=== PATIENT | female | born 1990 | race Two or more races ===

== ENCOUNTER → 2017-04-10 | Outpatient (CLI) | payer MEDICAID | LOC: FIMAGING 07:55 | PROVIDERS: ATTEND Obstetrics & Gynecology | DX: O44.02 Complete placenta previa NOS or without hemorrhage, second trimester (principal); Z3A.20 20 weeks gestation of pregnancy ==

== ENCOUNTER → 2017-05-30 | Outpatient (CLI) | payer MEDICAID | LOC: FIMAGING 10:27 | PROVIDERS: ATTEND Obstetrics & Gynecology | DX: O28.9 Unspecified abnormal findings on antenatal screening of mother (principal); Z3A.30 30 weeks gestation of pregnancy ==

== ENCOUNTER 2017-07-30 15:07 | Inpatient (IN) | payer MEDICAID ==
[2017-07-30] MEDS ORDERED: IBUPROFEN 600 MG TAB PO PRN (17:48)
[2017-07-30] MEDS ORDERED: OXYTOCIN 20 UNIT in LR 1,000 ML IV PRN (17:48)
[2017-07-30] MEDS ORDERED: MISOPROSTOL 200 MCG TAB PR PRN (17:48)
[2017-07-30] MEDS ORDERED: EPSOM SALT 454 GM TP PRN (17:48)
[2017-07-30] MEDS ORDERED: OLIVE OIL 118 ML BTL MISC PRN (17:48)
[2017-07-30] MEDS ORDERED: TERBUTALINE SULFATE 1 MG/ML VIAL IV PRN (17:48)
[2017-07-30] MEDS ORDERED: LR 1,000 ML IV PRN (17:48)
[2017-07-30 17:53] LABS: PLATELET COUNT 253 10^3/uL (150-400)
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
--- NOTE | 2017-07-31 07:11 | OBPROG ---
Labor Progress Note Assessment/Plan: Assessment:cat 1 exam 2-3/75/-1 cephalic amnisure and rom verified again consult with dr. sarahi messer place IUPC and pitocin ok for plan of care noted clear fluid leaking vaginally contractions q 3-5 minutes apart patient and family ok with POC Plan:pitocin per protocol , iupc placed 07/31/17 07:09 Subjective/Intrapartum Course: 07/31/17 07:09 Doing well . [place] contractions through the night. Noted contractions on monitor 3-5 minutes apart Objective: 07/30/17 17:20 Patient ABO/Rh A POSITIVE 07/30/17 17:20 - SVE Dilation (cm): 2, 3 Effacement (%): 80 Station: -1 Membranes: SROM Amniotic Fluid Color: Clear - Contraction Pattern Assessment Current Contraction Pattern: Regular - FHR Assessment Delgadillo FHR (bpm): 140 FHR Pattern Variability: Moderate FHR Category: 1 Oxytocin Orders Assessment - Pre-Induction/Augmentation Assessment Indication: prolonged rom Presentation: Vertex Gestational Age: 39 week(s) and 2 day(s) Estimated Weight: 2501-3400g Membrane Status: Ruptured Current Contraction Pattern: Regular - Heart Rate Pattern Delgadillo FHR Baseline (bpm): 135 FHR Category: 1 FHR Pattern Variability: Moderate - Doshi's Score Dilation: 1-2cm Effacement: 60-70 Station: -1,0 Cervix: Soft Cervix Position: Mid Doshi Score Total: 8 - Induction/Augmentation Consent Risks/Benefits of Procedure Reviewed/Pt Agrees to Proceed: Yes ICD10 Worksheet Patient Problems: Problems Problem Status Onset term rom Acute
[2017-07-31] MEDS ORDERED: OXYTOCIN 30 UNIT in NS 500 ML IV SCH (07:15)
--- NOTE | 2017-07-31 11:34 | OBPROG ---
Labor Progress Note Assessment/Plan: Assessment:cat 1 exam /0 cephalic pitocin at 7 mu max 10-12 mu pitocin discussed poc with diann FRANCO iupc fell out consult with dr. beverley knox for POC noted clear fluid leaking vaginally contractions q 3-5 minutes apart patient and family ok with POC with greater pain will replace IUPC at this time will use toco patient and family ok with POC Plan:pitocin per protocol , 07/31/17 07:09 07/31/17 11:32 Subjective/Intrapartum Course: 07/31/17 07:09 Doing well . [place] contractions through the night. Noted contractions on monitor 3-5 minutes apart Objective: 07/30/17 17:20 Patient ABO/Rh A POSITIVE 07/30/17 17:20 - SVE Membranes: SROM Amniotic Fluid Color: Clear - Contraction Pattern Assessment Current Contraction Pattern: Regular Oxytocin Orders Assessment - Pre-Induction/Augmentation Assessment Gestational Age: 39 week(s) and 2 day(s) ICD10 Worksheet Patient Problems: Problems Problem Status Onset term rom Acute
--- NOTE | 2017-07-31 13:26 | PDMN ---
Medical Necessity Medical necessity: Pt meets IP criteria per CNM; admit for labor & delivery; per progress note & order 07/31/17
[2017-07-31] MEDS ORDERED: PHENYLEPHRINE HCL 100 MCG/ML SYR ONE ×2 (16:19→21:44)
[2017-07-31] MEDS ORDERED: BUPIVACAINE 0.25% 30 ML SDV ONE (16:19)
[2017-07-31] MEDS ORDERED: PHENYLEPHRINE HCL 100 MCG/ML SYR IVP PRN ×2 (17:27→22:38)
[2017-07-31] MEDS ORDERED: ONDANSETRON 4 MG/2 ML VIAL IVP PRN ×2 (17:27→22:38)
[2017-07-31] MEDS ORDERED: LR 500 ML IV SCH (17:30)
[2017-07-31] MEDS ORDERED: fentaNYL 2MCG/ML/BUP 0.1% RTU 100 ML EP SCH (17:30)
--- NOTE | 2017-07-31 17:37 | PREANESOB ---
Obstetric Pre-Anesthesia Info - General Info Proposed Procedure: Labor and delivery with pitocin. TOLAC. : 3 Para: 0 JOHANNY: 08/04/17 Gestational Age: 39 week(s) and 2 day(s) - Info Status: Full Term Monitors: External FHR Baseline (bpm): 135 FHR Pattern: Reassuring - Labor Status Cervical Dilation per last OB SVE: 2, 3 Station per last OB SVE: -1 Amniotic Fluid Color: Clear Pitocin: In Use Indications for Labor Analgesia: Induction of Labor, Pain Control Labor Epidural: Proposed Anesthesia ROS: Prior spinal for C Section and general for arm surgery. Allergies/Adverse Reactions: Allergy/AdvReac Type Severity Reaction Status Date / Time No Known Allergies Allergy Unverified 07/30/17 15:30 Visit Medications: Generic Name Dose Route Start Last Admin Trade Name Freq PRN Reason Stop Dose Admin Diphenhydramine HCl 25 - 50 mg 07/31/17 17:27 Benadryl Injection IVP 01/27/18 17:26 Q6HRS PRN Itching Lactated Ringer's 1,000 mls @ 0 mls/hr 07/30/17 17:48 07/31/17 07:48 Lr IV 07/31/17 17:47 1,000 mls PRN PRN Administration SEE PROTOCOL CONDITIONS Protocol Per Protocol Oxytocin 20 unit/ Lactated 1,002 mls @ 150 mls/hr 07/30/17 17:48 Ringer's IV PRN PRN Post- bleeding Oxytocin 30 unit/ Sodium 503 mls @ 0 mls/hr 07/31/17 07:15 Chloride IV 01/27/18 07:14 CONT WESLEY Protocol Per Protocol Fentanyl/Bupivacaine HCl 100 mls @ 0 mls/hr 07/31/17 17:30 Fentanyl/Bupivacaine/Ns 2 Mcg/Ml 0.1% (Premix EP 08/10/17 17:29 CONT WESLEY Protocol As Directed Lactated Ringer's 500 mls @ 0 mls/hr 07/31/17 17:30 Lr IV 01/27/18 17:29 CONT WESLEY As Directed Ibuprofen 600 mg 07/30/17 17:48 Motrin PO 01/26/18 17:47 Q6HRS PRN post , inflammation Magnesium Sulfate 454 gm 07/30/17 17:48 Epsom Salt TP 01/26/18 17:47 Q1H PRN perineal discomfort Misoprostol 800 - 1,000 mcg 07/30/17 17:48 Cytotec [place] ONCE PRN Vaginal Atony/Bleeding [place] Oil 118 ml 07/30/17 17:48 Sweet Oil MISC 01/26/18 17:47 ONCE PRN perineal massage Ondansetron HCl 4 mg 07/31/17 17:27 Zofran IVP 08/01/17 17:26 Q4HRS PRN Nausea/Vomiting, Can't Take PO Phenylephrine HCl 100 mcg 07/31/17 17:27 Neosynephrine IVP 01/27/18 17:26 .Q2M PRN Hypotension Terbutaline Sulfate 0.25 mg 07/30/17 17:48 Brethine IV 01/26/18 17:47 ONCE PRN Tachysystole Discontinued Medications Generic Name Dose Route Start Last Admin Trade Name Freq PRN Reason Stop Dose Admin Bupivacaine HCl Confirm 07/31/17 16:19 Sensorcaine 0.25% Sdv Administered 07/31/17 16:20 Dose 30 ml .ROUTE .STK-MED ONE Phenylephrine HCl Confirm 07/31/17 16:19 Neosynephrine Administered 07/31/17 16:20 Dose 1,000 mcg .ROUTE .STK-MED ONE - Anesthesia History Response to Local Anesthetics: Normal Anesthesia & Operative History: No Prior Problems Family Anesthesia History: Negative - Social History Substance Use/Abuse: Denies (Past smoker.) - Vital Signs Blood Pressure: 106/62 Heart Rate: 79 Height/Weight (Nursing): Height 149.86 cm Weight 52.163 kg - Focused Exam Neck exam: FROM Mallampati Score: Class 1 Mouth exam: small mouth opening Pulmonary: no respiratory distress Cardiovascular: regular rate and rhythym Labs: 07/30/17 17:20 Patient ABO/Rh A POSITIVE 07/30/17 17:20 - Plan Anesthetic Plan: MELA Consent Signed and on Chart: Yes Patient/Guardian Understands and Agrees to Plan: Yes Urgent/Emergent Case: Parvinjavan carpiofariba completed preop but documented later for safe timely pt care
--- NOTE | 2017-07-31 17:41 | POSTANESTH ---
Post Anesthetic Evaluation Cardiovascular Status: Normal, Stable, Similar to Pre-Op Cond Respiratory Status: Normal, Stable, Similar to Pre-op Cond. Level of Consciousness/Mental Status: Can Participate in Eval, Alert and Oriented Pain Control: Adequate, Prn Tx Ordered Nausea/Vomiting Control: Adequate, Prn Tx Ordered Complications Possibly Related to Anesthesia: None Noted
[2017-07-31] MEDS ORDERED: fentaNYL 200 MCG, BUPIVACAINE 0.5% 20 ML in NS 100 ML EP SCH (18:00)
--- NOTE | 2017-07-31 18:19 | OBPROG ---
Labor Progress Note Assessment/Plan: Assessment:cat 1 exam /-[address] knox x3 aromed forebag pitoicn on and off at 8 mu noted clear fluid leaking vaginally contractions q 3-5 minutes apart patient and family ok with POC Plan:pitocin per protocol , iupc replaced dr. abilio saldaña aromed at 1530 07/31/17 07:09 07/31/17 18:18 Subjective/Intrapartum Course: 07/31/17 07:09 Doing well . [place] contractions through the night. Noted contractions on monitor 3-5 minutes apart 07/31/17 18:18 Comfortable after the epidural placed Objective: 07/30/17 17:20 Patient ABO/Rh A POSITIVE 07/30/17 17:20 Temp Pulse Resp BP Pulse Ox 79 106/62 07/31/17 17:40 07/31/17 17:40 - SVE Dilation (cm): 4 Effacement (%): 75 Station: -1 Membranes: SROM Amniotic Fluid Color: Clear - Contraction Pattern Assessment Current Contraction Pattern: Regular - FHR Assessment Delgadillo FHR (bpm): 145 FHR Pattern Variability: Moderate FHR Category: 2 - Physical Exam Estimated Weight: 2501-3400g Oxytocin Orders Assessment - Pre-Induction/Augmentation Assessment Presentation: Vertex Gestational Age: 39 week(s) and 2 day(s) Estimated Weight: 2501-3400g ICD10 Worksheet Patient Problems: Problems Problem Status Onset term rom Acute
--- NOTE | 2017-07-31 20:34 | OBPROG ---
Labor Progress Note Assessment/Plan: Assessment:cat 2 exam /-[address] mvu not adequete continued leaking clear fluid pitoicn at 15 mu noted clear fluid leaking vaginally contractions q 3-5 minutes apart patient and family ok with POC consult dr. knox discussed minimal change increasing pitocin per protocol Plan:pitocin per protocol , 07/31/17 07:09 07/31/17 18:18 07/31/17 20:32 Subjective/Intrapartum Course: 07/31/17 07:09 Doing well . [place] contractions through the night. Noted contractions on monitor 3-5 minutes apart 07/31/17 18:18 Comfortable after the epidural placed 07/31/17 20:31 Comfortable with epidural for pain relief. no change to cervix. Contractions not adequete Objective: 07/30/17 17:20 Patient ABO/Rh A POSITIVE 07/30/17 17:20 Temp Pulse Resp BP Pulse Ox 79 106/62 07/31/17 17:40 07/31/17 17:40 - SVE Dilation (cm): 4 Effacement (%): 80 Station: -1 Membranes: SROM Amniotic Fluid Color: Clear - Contraction Pattern Assessment Current Contraction Pattern: Regular - Physical Exam Estimated Weight: 2501-3400g Oxytocin Orders Assessment - Pre-Induction/Augmentation Assessment Presentation: Vertex Gestational Age: 39 week(s) and 2 day(s) Estimated Weight: 2501-3400g ICD10 Worksheet Patient Problems: Problems Problem Status Onset term rom Acute
[2017-07-31] MEDS ORDERED: LIDO/EPI 2% **for epidural** 20 ML SDV ONE (20:50)
[2017-07-31] MEDS ORDERED: LR 500 ML IV ONE (20:53)
[2017-07-31] MEDS ORDERED: LR 1,000 ML IV SCH (21:00)
[2017-07-31] MEDS ORDERED: ceFAZolin 2 GM/SWFI 2 GM/20 ML SYR IVP ONE (21:00)
--- NOTE | 2017-07-31 21:05 | PDCONSULT ---
Technical Product Manager Note: Geraldine and I have been following Renée today. I have been in to see her a couple times and we've been discussing what has been slow progress over the course of the day today. I checked her and found her to be 3cm and ruptured a forebag and replaced IUPC around 1400 and she has had adequate or near-adequate ctx's for these 7 hours since then and has only progressed to 4cm, still 75% with head not well applied to cervix, and no change at all within the last 2 hours. I had a talk with Renée about this protracted course and admitted that if this were her first child we could allow more time with this prolonged phase of labor, in the situation of TOLAC that becomes riskier. Overall I recommended to her that we proceed with and she agreed. Risks/benefits/alternatives discussed and consents signed with me in person. She'll get weight-based Ancef and we'll move to the OR, non-emergently. tracing has been Cat I and II all day.
--- NOTE | 2017-07-31 21:09 | POSTOPPROG ---
Post Op Note Date of Operation: 07/31/17 Surgeon: Nii Davenport Open Soaper Tender: Geraldine Corral CNM Anesthesia: Epidural Pre-op Diagnosis: Arrest of dilation, Failed TOLAC Post-op Diagnosis: Same Procedure: Unscheduled RLTCS Findings: Minimal scar tissue from omentum to lower uterine segment - Avascular. Inf/Abcess present in the surg proc area at time of surgery?: No EBL: 600cc Total fluids administered: 1800cc Complications: None Specimen(s): Cord gasses not sent, plaenta not sent.
--- NOTE | 2017-07-31 21:14 | SUROPNOTE ---
[facility] Operative Report - Surgery Date of Operation: 07/31/17 Surgeon: Nii Davenport Caseworker Intake: Geraldine Corral CNM Anesthesia: Epidural Pre-op Diagnosis: Arrest of dilation, Failed TOLAC Post-op Diagnosis: Same Procedure: Unscheduled RLTCS Findings: Minimal scar tissue from omentum to lower uterine segment - Avascular. Inf/Abcess present in the surg proc area at time of surgery?: No EBL: 600cc Total fluids administered: 1800cc Complications: None Specimen(s): Cord gasses not sent, plaenta not sent. Technique: The patient was taken to the OR where epidural was dosed and anesthesia found to be adequate. The patient was then positioned supine with a leftward tilt and a time-out was performed. She was given weight-based antibiotics prior to skin incision. The abdomen was prepped and draped in normal sterile fashion. A Pfannenstiel skin incision was made with the scalpel and carried down to the fascia. Her prior transverse scar was excised at start. The fascia was incised in the midline and the incision extended bilaterally sharply with scissors. The fascia was dissected off of the underlying rectus muscles superiorly and inferiorly also sharply using scissors. The rectus were in the midline and the peritoneum identified and entered bluntly without issue. Minimal adhesions encountered as described in findings. The peritoneal incision was extended and the bladder blade was then placed. The vesicouterine junction was identified and a bladder flap created sharply and developed bluntly. A transverse incision was made with the scalpel in the lower uterine segment and extended with cephalad and caudad traction on the incision edges. The head was encountered and easily elevated out of the pelvis and delivered atraumatically, followed by the shoulders and body. The nose and mouth were bulb suctioned. We did wait for 60 seconds before clamping and cutting the cord and then the was handed to pediatric staff. Cord blood gases were not sent and the placenta was not sent to pathology. The uterus was then exteriorized and carefully wiped of all debris. The uterus was closed in two layers - the first layer was running with 180 0-vloc and the second a vertical imbricating layer using 0-vicryl. The gutters were cleared of all clots. The uterine incision was re-inspected and found to be hemostatic after placement of additional figure of eight sutures of 3-0 vicryl. The uterus was then returned to the abdomen. The fascia was elevated and the rectus muscles and subcutaneous tissues were found to be hemostatic. The fascia was closed with a running 0-Vicryl - single suture. The subcutaneous tissues were irrigated and hemostasis obtained. The subcutaneous space was closed with interrupted sutures of 2-0 vicryl. The skin was closed with 4-0 vloc undyed and then covered with Medipore dressing. The patient tolerated the procedure and was taken to recovery in stable condition. Lap, needle, sponge, and instrument count were announced as correct times two. I was present and scrubbed for the entire case.
[2017-07-31] MEDS ORDERED: DEXAMETHASONE 4 MG/ML VIAL ONE ×2 (21:20)
[2017-07-31] MEDS ORDERED: OXYTOCIN 100 UNITS/10 ML VIAL ONE (21:20)
[2017-07-31] MEDS ORDERED: ONDANSETRON 4 MG/2 ML VIAL ONE ×2 (21:20)
[2017-07-31] MEDS ORDERED: morphINE PF 5 MG/10 ML INJ ONE (21:32)
[2017-07-31] MEDS ORDERED: PROMETHAZINE HCL 25 MG/ML INJ IVP PRN (22:18)
[2017-07-31] MEDS ORDERED: SIMETHICONE 80 MG TAB CHEW PO PRN (22:18)
[2017-07-31] MEDS ORDERED: ACETAMINOPHEN 325 MG TAB PO PRN (22:18)
[2017-07-31] MEDS ORDERED: HYDROmorphONE/DILAUDID 2 MG/ML INJ IVP PRN (22:38)
[2017-07-31] MEDS ORDERED: NALOXONE HCL 0.4 MG/ML INJ IVP PRN (22:38)
[2017-07-31] MEDS: KETOROLAC 30 MG/1 ML SDV IVP PRN (22:40)
--- NOTE | 2017-07-31 22:45 | POSTANESTH ---
Post Anesthetic Evaluation Cardiovascular Status: Normal, Stable, Similar to Pre-Op Cond Respiratory Status: Normal, Stable, Similar to Pre-op Cond. Level of Consciousness/Mental Status: Can Participate in Eval, Alert and Oriented (Epidural dosed for C Section, to OR, comfortable for surgery, epidural morphine given, to PACU, no nausea, getting toradol for pain (dilaudid ordered prn), otherwise doing well.) Pain Control: Inadeq, Add Tx Required Nausea/Vomiting Control: Adequate, Prn Tx Ordered Complications Possibly Related to Anesthesia: None Noted
[2017-08-01] MEDS: KETOROLAC 30 MG/1 ML SDV IVP PRN ×3 (04:57→17:48)
--- NOTE | 2017-08-01 09:20 | OBPP ---
Progress Note Assessment/Plan: Assessment: 27 y/o s/p repeat LTCS after failed TOLAC at 39+ weeks EGA Prolonged ROM - >36 hours POD #1 H/O PP depression with first delivery Plan: Routine post care Advance diet and activity as tolerated D/C moore and remove abd dressing this afternoon 08/01/17 10:13 08/01/17 10:18 08/01/17 10:25 Subjective/ Course: 08/01/17 10:09 Patient is doing well this morning. Reports lochia to be light, pain controlled well currently with Toradol, advancing diet- tolerating clears and crackers- moore still in place. States is going ok with assistance from support. Objective: 08/01/17 05:00 Patient ABO/Rh A POSITIVE 07/30/17 17:20 Temp Pulse Resp BP Pulse Ox 36.7 C 94 17 96/64 L 98 08/01/17 08:00 08/01/17 08:00 08/01/17 08:00 08/01/17 08:00 08/01/17 08:00 VSS Respirations unlabored. Extremities with minimal edema Lochia sml Abd dressing intact hypoactive BS X4 quads Fundus firm Nipples intact Uterine Position/Fundal Height: Umbilicus -1 (Abd dressing dry/intact) Uterine Tone: Firm Physical Exam - Physical Exam EENT: PERRL/EOMI Neck: supple, normal inspection Respiratory: lungs clear, normal breath sounds Cardiac/Chest: regular rate, rhythm Abdomen: hypoactive bowel sounds Extremities: normal range of motion Skin: normal color, warm/dry Neuro/Psych: alert, normal mood/affect, oriented x 3
[2017-08-01] MEDS: HYDROCODONE/APAP 5/325 TAB PO PRN (18:25)
[2017-08-01] MEDS: DOCUSATE SODIUM 100 MG CAP PO PRN (22:55)
[2017-08-01] MEDS: IBUPROFEN 600 MG TAB PO PRN (22:55)
[2017-08-02] MEDS: HYDROCODONE/APAP 5/325 TAB PO PRN ×2 (00:28→06:27)
[2017-08-02] MEDS: IBUPROFEN 600 MG TAB PO PRN ×3 (06:27→18:43)
--- NOTE | 2017-08-02 09:06 | OBPP ---
Progress Note Assessment/Plan: 08/02/17 09:02 Assessment: 27 year old POD #2 s/p repeat C/S after unsuccessful TOLAC attempt. Doing well. Working on . Plan: Encourage ambulation today, may shower as desired. Continue to work with . Anticipate dc to home tomorrow. Subjective/ Course: 08/01/17 10:09 Patient is doing well this morning. Reports lochia to be light, pain controlled well currently with Toradol, advancing diet- tolerating clears and crackers- moore still in place. States is going ok with assistance from support. 08/02/17 09:06 Doing well. Was able to get some sleep last night. Pain well controlled. Tolerating a regular diet. Ambulating without difficulty. Voiding without difficulty. + flatus. challenging but working with . Lochia - less than a regular menses. Objective: 08/01/17 05:00 Patient ABO/Rh A POSITIVE 07/30/17 17:20 Temp Pulse Resp BP Pulse Ox 36.8 C 78 16 98/63 L 95 08/02/17 06:00 08/02/17 06:00 08/02/17 06:00 08/02/17 06:00 08/02/17 06:00 gen -pleasant female in NAD CV - RRR chest - CTAB abd - soft, NT, + BS, fundus firm and NT at u-2 ext - calves NT, no edema Uterine Position/Fundal Height: Umbilicus -2 Uterine Tone: Firm
[2017-08-02] MEDS: DOCUSATE SODIUM 100 MG CAP PO PRN (19:55)
[2017-08-03] MEDS: HYDROCODONE/APAP 5/325 TAB PO PRN ×2 (01:48→10:44)
[2017-08-03] MEDS: IBUPROFEN 600 MG TAB PO PRN (10:40)
[2017-08-03] MEDS: DOCUSATE SODIUM 100 MG CAP PO PRN (10:41)
--- NOTE | 2017-08-03 10:44 | OBGCSDC ---
General Delivery Information - General Info : 3 Para: 1 Abortions: 0 L&D Analgesia/Anesthesia Type: Epidural Admission Date: 07/31/17 Labs: Patient ABO/Rh A POSITIVE 07/30/17 17:20 Hct 33.8 % (38.0-47.0) L 08/01/17 05:00 - Hospital Course Intrapartum: 07/31/17 07:09 Doing well . [place] contractions through the night. Noted contractions on monitor 3-5 minutes apart 07/31/17 18:18 Comfortable after the epidural placed 07/31/17 20:31 Comfortable with epidural for pain relief. no change to cervix. Contractions not adequete : 08/01/17 10:09 Patient is doing well this morning. Reports lochia to be light, pain controlled well currently with Toradol, advancing diet- tolerating clears and crackers- moore still in place. States is going ok with assistance from support. 08/02/17 09:06 Doing well. Was able to get some sleep last night. Pain well controlled. Tolerating a regular diet. Ambulating without difficulty. Voiding without difficulty. + flatus. challenging but working with . Lochia - less than a regular menses. 08/03/17 10:35 S) Pt doing well, she reports moderate pain improved with use of ibuprofen and norco. She reports min vaginal bleeding. She is without difficulty. She is ambulating and voiding without difficulty. FOB @ BS and supportive. She desires d/c home at this time. O) VSS, afebrile constitutional: WNWF, A&Ox3 HEENT: normocephalic, atraumatic, supple Heart: RRR, No murmur Chest: CTA-B Abdomen: Soft, nontender incision: C/D/I, healing well Uterus: Firm at U-1 Lochia: Minimal rubra Perineum: Intact Extremities: no edema, and negative Sacha's sign Neuro: Grossly normal A) [id number] S/P repeat c/s POD#3 P) Discharge home today Continue Pelvic rest x6wks Discussed danger signs (infection, preeclampsia, depression, heavy bleeding, etc ) RTO in 2/4/6 weeks, post op appt sched 08/10 @ 2:45pm 08/03/17 10:44 Vaginal - Diagnosis Amniotic Fluid Color: Clear - Delivery Providers Surgeon: Nii Davenport Data JOHANNY: 08/04/17 Gestational Age: 39 week(s) and 6 day(s) [place] Delivery Date: 07/31/17 Delivery Time: 21:33 Sex of : Female Weight (gm): 3422 kg Score (1 Min): 9 Score (5 Min): 9 Discharge Information - Discharge Information Prescriptions: Hydrocodone/APAP 5/325 [[place] 5/325 (*)] 1 - 2 tab PO Q4HRS PRN #20 tab PRN Reason: Pain, Moderate Ibuprofen [Motrin (*)] 600 mg PO Q6HRS PRN #30 tab PRN Reason: Inflammation Condition: Good
--- NOTE | 2017-08-03 13:20 | SOAPPROG ---
SOAP Progress Note Assessment/Plan: Assessment: day 3 s/p labor epidural converted for C/S placed on 07/31/17 complaining of positional headache, likely PDPH though not classic presentation. Given somewhat challenging initial placement, patient would like to opt for conservative management, as the natural course for PDPH is self-limited. Discussed risks/benefits of epidural blood patch; patient would like to defer EBP at this time. Plan: Conservative management with aggressive hydration, caffeine, fioricet PRN. Patient understands that should she change her mind and request an epidural blood patch, we are available to do so. She understands that she would likely derive significant benefit from EBP, though this is unfortunately not guaranteed to improve her symptoms. 08/03/17 13:21 Subjective: day 3 s/p labor epidural converted for C/S placed on 07/31/17 complaining of positional headache with onset this AM. Pain is 5/10 in severity, located at frontal aspect of head, nonradiating, not associated with vision changes or dizziness. Endorses some nausea. Improves with laying supine; worsens with standing up or walking (which she has not done since this AM). Denies photosensitivity, neck rigidity, occipital pain, weakness, or paresthesias. Patient states that original epidural placement was complicated requiring 2 attempts. Objective: Vital Signs Temp Pulse Resp BP Pulse Ox 37.1 C 93 16 103/61 96 08/03/17 12:49 08/03/17 12:49 08/03/17 12:49 08/03/17 12:49 08/03/17 09:08 Laboratory Results 08/01/17 05:00 08/02/17 08/03/17 08/04/17 05:59 05:59 05:59 Intake Total 1500 Output Total 2700 Balance -2700 1500 Vital Signs Temp Pulse Resp BP Pulse Ox 37.1 C 93 16 103/61 96 08/03/17 12:49 08/03/17 12:49 08/03/17 12:49 08/03/17 12:49 08/03/17 09:08 Laboratory Results 08/01/17 05:00 08/02/17 08/03/17 08/04/17 05:59 05:59 05:59 Intake Total 1500 Output Total 2700 Balance -2700 1500 - Pending Discharge Pending Discharge Within 24 Hours: Yes Pending Discharge Date: 08/04/17 Pending Discharge Time: 11:00 Physical Exam - Physical Exam General Appearance: alert, no apparent distress (laying supine) EENT: PERRL/EOMI Neck: non-tender, full range of motion Respiratory: No respiratory distress Cardiac/Chest: normal peripheral pulses, No edema Skin: normal color Neuro/Psych: no motor/sensory deficits, normal mood/affect ICD10 Worksheet Patient Problems: Problems Problem Status Onset Arrest of dilation, delivered, current hospitalization Acute Failed attempted vaginal after previous delivery Acute History of delivery, antepartum Acute term rom Acute
[2017-08-03] MEDS ORDERED: ACET/CAFFEINE/BUTA FIORICET 1 EACH TAB PO PRN (13:30)
--- NOTE | 2017-08-03 15:11 | SOAPPROG ---
SOAP Progress Note Assessment/Plan: Assessment: spinal headache- relieved with fioricet Plan: d/c home now rx fioricet given precautions discussed 08/03/17 15:09 Subjective: pt reported headache around 9:45am this morning, worse sitting up. +photophobia. Anesthesia evaluated pt and believes that it is likely spinal headache. Objective: Vital Signs Temp Pulse Resp BP Pulse Ox 37.1 C 93 16 103/61 96 08/03/17 12:49 08/03/17 12:49 08/03/17 12:49 08/03/17 12:49 08/03/17 09:08 Laboratory Results 08/01/17 05:00 08/02/17 08/03/17 08/04/17 05:59 05:59 05:59 Intake Total 1500 Output Total 2700 Balance -2700 1500 Physical Exam - Physical Exam General Appearance: WD/WN, alert Neck: supple Respiratory: lungs clear, normal breath sounds Cardiac/Chest: regular rate, rhythm Abdomen: non-tender, soft Skin: normal color, warm/dry Neuro/Psych: alert, normal mood/affect, oriented x 3 ICD10 Worksheet Patient Problems: Problems Problem Status Onset Arrest of dilation, delivered, current hospitalization Acute Failed attempted vaginal after previous delivery Acute History of delivery, antepartum Acute Spinal headache Acute term rom Acute - ICD10 Problem Qualifiers (1) Spinal headache
[2017-08-03 15:12] VITALS: BP 109/91
== END 2017-08-03 16:00 | disposition home or self-care (01) | DRG 765 ==
LOC: FLD 15:07 → OBSVTOIN 07-31 13:16 → FLD 07-31 20:40 → FOB 08-01 00:38 → FLD 08-02 19:29
PROVIDERS: ADMIT Obstetrics & Gynecology; ATTEND Obstetrics & Gynecology
PROC: 10D00Z1 Extraction of Products of Conception, Low, Open Approach (ICD-10-PCS; principal; 2017-07-31)
DX: O62.1 Secondary uterine inertia (principal); O99.355 Diseases of the nervous system complicating the puerperium; G97.1 Other reaction to spinal and lumbar puncture; Z37.0 Single live birth; Z3A.39 39 weeks gestation of pregnancy
CPT/HCPCS: G0378; G0379; J0690; J1100; J1170; J1885; J2274; J2370; J2405; J2590; J3010